=== PATIENT | female | born 1960 | race Caucasian/White ===

== ENCOUNTER 2017-07-20 15:45 | Outpatient (CLI) | payer OTHER | END 2017-07-20 15:46 | disposition home or self-care (01) | LOC: BICMAMMO 15:45 | DX: Z12.31 Encounter for screening mammogram for malignant neoplasm of breast (principal); Z80.3 Family history of malignant neoplasm of breast | CPT/HCPCS: 77063; 77067; G0202 ==

== ENCOUNTER 2018-07-28 16:28 | Outpatient (CLI) | payer OTHER | END 2018-07-28 16:29 | disposition home or self-care (01) | LOC: BICMAMMO 16:28 | PROVIDERS: ATTEND Internal Medicine | DX: Z12.31 Encounter for screening mammogram for malignant neoplasm of breast (principal); Z80.3 Family history of malignant neoplasm of breast | CPT/HCPCS: 77063; 77067 ==

== ENCOUNTER 2018-11-10 09:12 | Outpatient (CLI) | payer OTHER ==
[2018-11-10 10:10] LABS: ALT (SGPT) 20 U/L (8-55); AST (SGOT) 22 U/L (5-34); Albumin 4.2 g/dL (3.5-5.0); Alkaline Phosphatase 89 U/L (40-150); Anion Gap 12 mmol/L (10-20); BUN (Urea Nitrogen) 19 mg/dL (9.8-20.1); Bilirubin, Total 0.5 mg/dL (0.2-1.2); Calc. Creatinine Clearance 0 mL/min (70-130); Calcium 8.9 mg/dL (7.8-10.44); Carbon Dioxide 26 mmol/L (22-29); Chloride 107 mmol/L (98-107); Estimated GFR-MDRD 66; Globulin 2.4 g/dL (2.4-3.5); Glucose 82 mg/dL (70-105); Potassium 3.8 mmol/L (3.5-5.1); Protein, Total 6.6 g/dL (6.0-8.3); Sodium 141 mmol/L (136-145)
--- NOTE | 2018-11-10 11:49 | MRI ---
Exam: MRI of the abdomen without and with contrast COMPARISON: None HISTORY: Hepatic cysts TECHNIQUE: Multiplanar multi sequence MR images were taken of the abdomen without and with IV contras t. FINDINGS: Liver: Numerous well-circumscribed nonenhancing foci of high T2 signal are seen in the liver measurin g up to 7.3 cm in size which represent simple cysts. Gallbladder: No filling defects or gallbladder wall thickening. Common bile duct: Normal caliber without filling defects. There is pericardial thickening. Adrenal glands: Unremarkable. Kidneys: There is a 1.0 cm nonenhancing cyst in the posterior aspect of the left kidney. The right ki dney is unremarkable.. Spleen: Unremarkable. Pancreas: Unremarkable. Retroperitoneum: No enlarged lymph nodes Bones: No marrow signal abnormality. Soft tissues: There is a 7 mm enhancing focus associated with the lumbar fascia on the right which is nonspecific and demonstrates high T2 signal. Inferior thorax: There is pericardial thickening IMPRESSION: 1. Hepatic cysts 2. Left renal cyst 3. Nonspecific enhancing focus along the lumbar fascia could represent a small enhancing soft tissue mass.
== END 2018-11-10 09:13 | disposition home or self-care (01) ==
LOC: SCSMRI 09:12
PROVIDERS: ATTEND Internal Medicine Gastroenterology
DX: K76.89 Other specified diseases of liver (principal); N28.1 Cyst of kidney, acquired
CPT/HCPCS: 36415; 74183; 80053

== ENCOUNTER 2019-12-06 08:58 | Outpatient (CLI) | payer OTHER ==
[2019-12-06 14:40] LABS: ALT (SGPT) 28 U/L (8-55); AST (SGOT) 29 U/L (5-34); Albumin 4.3 g/dL (3.4-4.8); Alkaline Phosphatase 96 U/L (40-110); Anion Gap 11 mmol/L (10-20); BUN (Urea Nitrogen) 18 mg/dL (9.8-20.1); Bilirubin, Total 0.4 mg/dL (0.2-1.2); Calc. Creatinine Clearance 0 mL/min (70-130); Calcium 8.7 mg/dL (7.8-10.44); Carbon Dioxide 28 mmol/L (23-31); Chloride 106 mmol/L (98-107); Estimated GFR-MDRD 71; Globulin 2.2 g/dL (2.4-3.5); Glucose 75 mg/dL (80-115); Potassium 3.9 mmol/L (3.5-5.1); Protein, Total 6.5 g/dL (6.0-8.3); Sodium 141 mmol/L (136-145)
--- NOTE | 2019-12-07 08:49 | MRI ---
MRI ABDOMEN WITH AND WITHOUT IV COTNRAST: HISTORY: Liver cyst. COMPARISON: 11/10/2018. FINDINGS: Numerous well-circumscribed cysts in the liver are again seen with low T1, high T2 signal, and no pos tcontrast enhancement. The 10 mm and 7 mm cysts in the left kidney are again seen. The gallbladder, adrenal glands, spleen, and pancreas are normal. No free fluid or lymphadenopathy is seen. The bone marrow signal is normal. The aorta is normal jacy iber. The small nonspecific enhancing focus along the right lumbar fascia is stable. IMPRESSION: Stable cysts in the liver and left kidney. POS: [facility]
== END 2019-12-06 08:59 | disposition home or self-care (01) ==
LOC: SCSMRI 08:58
PROVIDERS: ATTEND Internal Medicine Gastroenterology
DX: K76.89 Other specified diseases of liver (principal); N28.1 Cyst of kidney, acquired
CPT/HCPCS: 36415; 74183; 80053

== ENCOUNTER 2020-08-27 15:32 | Outpatient (CLI) | payer BC, OTHER ==
--- NOTE | 2020-08-28 08:48 | MMO ---
Bilateral MAMMO Bilat Screen [facility]. CLINICAL HISTORY: Patient is 60 years old and is seen for screening. The patient has the following family history of breast cancer: maternal grandmother, malignant (generic). The patient has no personal history of cancer. VIEWS: The views performed were: bilateral craniocaudal with tomosynthesis and bilateral mediolateral oblique with tomosynthesis. FILMS COMPARED: The present examination has been compared to prior imaging studies performed at [facility] on 07/31/2019, and at [facility] on 05/13/2016, 07/20/2017 and 07/28/2018. This study has been interpreted with the assistance of computer-aided detection. MAMMOGRAM FINDINGS: The breasts are heterogeneously dense, which could obscure a lesion on mammography. There are no suspicious masses, suspicious calcifications, or new areas of architectural distortion. IMPRESSION: THERE IS NO MAMMOGRAPHIC EVIDENCE OF MALIGNANCY. A ROUTINE FOLLOW-UP MAMMOGRAM IN 1 YEAR IS RECOMMENDED. THE RESULTS OF THIS EXAM WERE SENT TO THE PATIENT. ACR BI-RADS Category 1 - Negative MAMMOGRAPHY NOTE: 1. A negative mammogram report should not delay a biopsy if a dominant of clinically suspicious mass is present. 2. Approximately 10% to 15% of breast cancers are not detected by mammography. 3. Adenosis and dense breasts may obscure an underlying neoplasm. Reported by: ANOOP PYLE MD Electonically Signed: [id number]
== END 2020-08-27 15:33 | disposition home or self-care (01) ==
LOC: BICMAMMO 15:32
PROVIDERS: ATTEND Internal Medicine
DX: Z12.31 Encounter for screening mammogram for malignant neoplasm of breast (principal); Z80.3 Family history of malignant neoplasm of breast
CPT/HCPCS: 77063; 77067

== ENCOUNTER 2021-08-28 12:06 | Outpatient (CLI) | payer BC | END 2021-08-28 12:07 | disposition home or self-care (01) | LOC: BICMAMMO 12:06 | PROVIDERS: ATTEND Internal Medicine | DX: Z12.31 Encounter for screening mammogram for malignant neoplasm of breast (principal); Z80.3 Family history of malignant neoplasm of breast | CPT/HCPCS: 77063; 77067 ==

== ENCOUNTER 2021-10-01 13:50 | Outpatient (CLI) | payer BC | END 2021-10-01 13:51 | disposition home or self-care (01) | LOC: BICRAD 13:50 | PROVIDERS: ATTEND Internal Medicine Gastroenterology | DX: M25.521 Pain in right elbow (principal); K62.89 Other specified diseases of anus and rectum; K76.89 Other specified diseases of liver ==

== ENCOUNTER 2022-11-29 14:19 | Emergency (ER) | payer BC, OTHER ==
[2022-11-29] MEDS ORDERED: Morphine 4 MG/ML VIAL ONE (15:42)
[2022-11-29] MEDS ORDERED: CEFAZOLIN 2 GM VIAL ONE (15:42)
[2022-11-29] MEDS ORDERED: Ondansetron PF 4 MG/2 ML Vial ONE (15:42)
[2022-11-29] MEDS ORDERED: Lidocaine 1% w/Epinephrine 1:100K 20 ML VIAL ONE (16:10)
[2022-11-29 16:30] LABS: #Eosinphils 0.1 thou/uL (0.0-0.7); #Lymphocytes 1.6 thou/uL (1.20-3.40); #Monocytes 0.5 thou/uL (0.11-0.59); #Neutrophils 5.2 thou/uL (1.40-6.50); %Basophils 0.6 % (0.0-1.0); %Eosinophils 0.8 % (0.0-10.0); %Lymphocytes 21.6 % (21.0-51.0); %Monocytes 6.5 % (0.0-10.0); %Neutrophils 70.4 % (42.0-75.0); Hemoglobin 13.5 g/dL (12.0-16.0); Mean Corpuscular HGB CONC 34.5 g/dL (32.0-36.0); Mean Corpuscular Hemoglobin 32.1 pg (27.0-31.0); Mean Corpuscular Volume 92.9 fl (78.0-98.0); Mean Platelet Volume 8.1 fL (7.4-10.4); Platelet Count 236 10x3/uL (130-400); RBC Distribution Width 12.3 % (11.5-14.5); White Blood Cell (WBC) Count 7.4 10x3/uL (4.8-10.8)
[2022-11-29 16:44] LABS: ALT (SGPT) 22 U/L (8-55); AST (SGOT) 29 U/L (5-34); Albumin 4.1 g/dL (3.4-4.8); Alkaline Phosphatase 76 U/L (40-110); Anion Gap 14 mmol/L (10-20); BUN (Urea Nitrogen) 25 mg/dL (9.8-20.1); Bilirubin, Total 0.4 mg/dL (0.2-1.2); Calc. Creatinine Clearance 0 mL/min (70-130); Calcium 9.3 mg/dL (7.8-10.44); Carbon Dioxide 22 mmol/L (23-31); Chloride 108 mmol/L (98-107); Estimated GFR 59; Globulin 2.5 g/dL (2.4-3.5); Glucose 100 mg/dL (80-115); Protein, Total 6.6 g/dL (5.8-8.1); Sodium 140 mmol/L (136-145)
[2022-11-29] MEDS ORDERED: Boostrix 0.5 ML (Tdap) VIAL (>/=7 yrs of age) ONE (17:10)
== END 2022-11-29 17:44 | disposition home or self-care (01) ==
LOC: ERS 14:19
DX: S80.12XA Contusion of left lower leg, initial encounter (principal); S51.011A Laceration without foreign body of right elbow, initial encounter; S81.011A Laceration without foreign body, right knee, initial encounter; V29.498A Other motorcycle driver injured in collision with other motor vehicles in traffic accident, initial encounter; Z79.82 Long term (current) use of aspirin; Z23 Encounter for immunization
CPT/HCPCS: 12002; 36415; 71045; 80053; 85025; 90471; 90715; 96365; 96375; J2270; J2405

== ENCOUNTER 2022-12-09 13:40 | Emergency (ER) | payer BC | END 2022-12-09 15:26 | disposition home or self-care (01) | LOC: ERS 13:40 | DX: S51.011D Laceration without foreign body of right elbow, subsequent encounter (principal); S81.811D Laceration without foreign body, right lower leg, subsequent encounter; X58.XXXD Exposure to other specified factors, subsequent encounter ==